=== PATIENT | male | born 1945 | race Caucasian/White ===

== ENCOUNTER 2022-03-01 08:36 | Outpatient (CLI) | payer OTHER, SELFPAY ==
--- NOTE | 2022-03-01 08:48 | XRR_ITS ---
PROCEDURE INFORMATION: Exam: XR Cervical Spine Exam date and time: 03/01/2022 9:18 AM Age: 76 years old Clinical indication: Neck pain; Patient HX: Pain/cramp/numbness in bi lat shoulders and back; Additional info: Chronic back pain/weakness of R arm TECHNIQUE: Imaging protocol: XR of the cervical spine. Views: 2 or 3 views. Total images: 3 COMPARISON: No relevant prior studies available. FINDINGS: Bones/joints: C3-C4 and C5-7 Degenerative disc disease with disc space narrowing and osteophyte formation. Facet joint degenerative changes are present. C7-T1 Degenerative spondylolisthesis (grade 1) is seen with disc space height loss and degenerative changes in the facet joints. Soft tissues: Unremarkable. Other findings: Uncovertebral joint degeneration is present. XR/XR cervical spine 3V* [id number] IMPRESSION: Degenerative changes as described above but no acute pathology detected.
--- NOTE | 2022-03-01 08:48 | XRR_ITS ---
PROCEDURE INFORMATION: Exam: XR Thoracic Spine Exam date and time: 03/01/2022 9:18 AM Age: 76 years old Clinical indication: Pain in thoracic spine; Patient HX: Pain/cramp/numbness in bi lat shoulders and back; Additional info: Chronic back pain/weakness of R arm TECHNIQUE: Imaging protocol: XR of the thoracic spine. Views: 3 views. Total images: 2 COMPARISON: No relevant prior studies available. FINDINGS: Bones/joints: Diffuse osteopenia noted. No acute fracture nor subluxation. No osseous erosion nor periosteal reaction. Soft tissues: Unremarkable. XR/XR thoracic spine 2V [id number] IMPRESSION: No acute osseous pathology.
== END 2022-03-01 08:37 | disposition home or self-care (01) ==
LOC: RAD 08:39
PROVIDERS: Family Provider Family Medicine; Visit Provider Family Medicine
DX: M54.89 Other dorsalgia (principal); R53.1 Weakness; M50.323 Other cervical disc degeneration at C6-C7 level; M48.02 Spinal stenosis, cervical region; M85.80 Other specified disorders of bone density and structure, unspecified site
CPT/HCPCS: 72040; 72070

== ENCOUNTER 2022-04-06 11:00 | Outpatient (CLI) | payer OTHER, SELFPAY ==
--- NOTE | 2022-04-06 11:10 | MR_ITS ---
WS: [id number] MRI CERVICAL SPINE NONCONTRAST HISTORY: CHRONIC NECK PAIN/WEAKNESS OF R ARM COMPARISON: None available. Technique: Multiplanar, multisequence noncontrast imaging of the cervical spine. Moderate increase in cervical lordosis. No fracture or marrow edema. 2 mm retrolisthesis C3. Signal within the cervical cord is normal. Visualized posterior fossa is unremarkable. Craniocervical junction, C1 and C2 relationship, odontoid process and soft tissues are normal. Facet joint arthritis encroaching upon the posterior thecal sac from C2 through C4 and again at C6-7. C2-C3: Mild annular osteophytosis. No stenosis. C3-C4: Diffuse annular osteophytic ridging. Osteophytes and disc encroachment upon the ventral thecal sac. Mild deformity of the central canal. Moderate to severe central stenosis with LEFT foraminal st enosis and mild RIGHT foraminal stenosis. C4-C5: Diffuse osteophytic ridging with facet joint arthritis. Mild central and bilateral foraminal s tenosis. C5-C6: Moderate annular disc bulging and osteophytic ridging. Osteophytes displace the exiting nerve roots. Mild central and bilateral foraminal stenosis. C6-C7: Diffuse osteophytic ridging and annular disc bulge with a central disc protrusion. Moderate ce ntral and bilateral foraminal stenosis. C7-T1: Mild disc bulging and facet arthritis. Small osteophyte encroaches into the RIGHT foramen. Mild cerebellar atrophy. MR/MR cervical spin wo con* [id number] IMPRESSION: 1. Marked increase in the cervical lordosis with advanced degenerative spondyl itic changes. 2. Multilevel stenoses due to combination of disc disease, osteophytosis and f acet arthritis. 3. Moderate to severe central stenosis and LEFT foraminal stenosis at C3-4. Mi ld RIGHT foraminal stenosis. 4. Mild central and bilateral foraminal stenosis at C4-5 and C5-6. 5. Moderate central and bilateral foraminal stenosis at C6-7 predominantly due to osteophyte and disc disease. Smaller central disc protrusion. 6. Small osteophyte encroaches into the RIGHT foramen of C7-T1.
--- NOTE | 2022-04-06 11:10 | MR_ITS ---
WS: [id number] MRI THORACIC SPINE noncontrast. HISTORY: CHRONIC NECK PAIN/WEAKNESS OF R ARM COMPARISON: None available. TECHNIQUE: Multiplanar sequences are performed in sagittal and axial planes. Slight increase in thoracic kyphosis. No fracture or marrow edema. Very mild disc desiccation through out the thoracic spine. Conus tapers normally ends at T12-L1. T1-2: Normal. T2-3: Normal. T3-4: Normal. T4-5: Normal. T5-6: Normal. T6-7: Mild facet arthritis. T7-8: Mild facet arthritis. T8-9: Mild facet arthritis. T9-10: Mild facet arthritis. T10-11: Mild facet arthritis. T11-12: Mild facet arthritis. RIGHT renal cyst measures 1.4 cm. Mild atherosclerotic changes throughout the aorta. MR/MR thoracic spin wo con* [id number] IMPRESSION: 1. 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 2. No fractures. 3. No significant stenosis. No disc protrusions.
== END 2022-04-06 11:01 | disposition home or self-care (01) ==
LOC: RAD 11:01
PROVIDERS: Family Provider Family Medicine; Visit Provider Family Medicine
DX: M47.894 Other spondylosis, thoracic region (principal); M47.892 Other spondylosis, cervical region; M25.78 Osteophyte, vertebrae; M48.02 Spinal stenosis, cervical region
CPT/HCPCS: 72141; 72146

== ENCOUNTER → 2023-01-25 12:55 | Outpatient (BNVA) | payer OTHER, SELFPAY | PROVIDERS: Family Provider Family Medicine; PCP Family Medicine; Visit Provider Family Medicine | DX: Z00.00 Encounter for general adult medical examination without abnormal findings (principal); R35.0 Frequency of micturition; N40.0 Benign prostatic hyperplasia without lower urinary tract symptoms | CPT/HCPCS: 81000; 84153 ==

== ENCOUNTER → 2024-04-01 12:16 | Outpatient (BNVA) | payer OTHER, MEDICARE, SELFPAY | PROVIDERS: Family Provider Family Medicine; PCP Family Medicine; Visit Provider Family Medicine | DX: N40.0 Benign prostatic hyperplasia without lower urinary tract symptoms (principal); R10.2 Pelvic and perineal pain | CPT/HCPCS: 81000 ==

== ENCOUNTER → 2024-07-02 09:49 | Outpatient (BNVA) | payer MEDICARE, SELFPAY | PROVIDERS: PCP Family Medicine; Visit Provider Family Medicine | DX: Z00.00 Encounter for general adult medical examination without abnormal findings (principal); N40.0 Benign prostatic hyperplasia without lower urinary tract symptoms | CPT/HCPCS: 80053; 80061; 85025 ==

== ENCOUNTER → 2024-11-06 15:32 | Outpatient (BNVA) | payer MEDICARE, SELFPAY | PROVIDERS: PCP Family Medicine; Visit Provider Family Medicine | DX: R97.20 Elevated prostate specific antigen [PSA] (principal); R10.2 Pelvic and perineal pain | CPT/HCPCS: 84153 ==

== ENCOUNTER → 2025-04-16 13:01 | Outpatient (BNVA) | payer MEDICARE, SELFPAY | PROVIDERS: PCP Family Medicine; Visit Provider Family Medicine | DX: R07.9 Chest pain, unspecified (principal) | CPT/HCPCS: 80053; 83690; 83880; 85025; 86140 ==

== ENCOUNTER 2025-05-04 08:44 | Outpatient (CLI) | payer MEDICARE, SELFPAY ==
[2025-05-04 09:12] VITALS: BMI 25.0
--- NOTE | 2025-05-04 09:44 | ECG_ITS ---
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 Interpretive Statements Lung unchanged pre/post procedure; Intraprocedure shortess of breath; Symptoms resoled by discharge PROCEDURE: The baseline electrocardiogram showed normal sinus rhythm with normal ST-Ts. At the baseline, the patient's blood pressure was 139/69 mm Hg with a heart rate of 74. The patient exercised for 5 minutes and 33 seconds on a standard Cricket protocol. Patient attained a maximum heart rate of 132 beats per minute(94% of the maximum predicted heart rate) with a blood pressure at the peak exercise was not obtained. The EKG at the peak exercise revealed some nonspecific ST-T changes. Patient did not have any chest pain or any significant arrhythmis with the exercise Sestamibi was injected 1 minute prior to the peak exercise During the recovery phase, there were no new changes. Blood pressure at the end of the recovery phase was 161/49 mm Hg with a heart rate of 99 per minute. CONCLUSION: 1. Nonspecific EKG changes with the [treadmill exercise 2. No exercise-induced chest pain or cardiac arrhythmia 3. Slightly impaired exercise tolerance, attained a maximum of 7.0 METs 4. Sestamibi/Sestamibi perfusion results pending; see separate report. Electronically Signed On 05-12-2025 11:04:50 CDT by Ary Ruiz M.D. [email or web address]
--- NOTE | 2025-05-04 09:47 | NMCV_ITS ---
NM mirella perf SPECT r/s* [id number] Bola Centeno Age: 79 Gender: M : 1945 Exam Date: 05/04/2025 10:09 Ordering Phys: Boo Martel MD Technologist: BEATRIZ Neff Exam Location: [facility] Indications: cp STRESS TEST Please see separate stress test report in [facility] for full findings IMAGE PROTOCOL Rest/Stress 1 Exercise Day Radiopharmaceutical Dose (mCi) Administration Site Administered by Rest: Tc-99m 10.6 IV Stella Mayfield, PUMP SERVICE SUPERVISOR Sestamibi Stress:Tc-99m 32.9 IV Stella Mayfield, PUMP SERVICE SUPERVISOR Sestamibi Rest: 04-May-2025 60 Discovery 630 Stress: 04-May-2025 15 Discovery 630 Radiopharmaceutical was injected at 87 % maximum heart rate. Images obtained in supine and prone position. SPECT RESULTS Technical Quality: Good Raw Data Analysis: Normal Image Corrections: No attenuation or motion correction applied Summed Stress Score: 0 Summed Rest Score: 0 Summed Difference Score: 0 PERFUSION FINDINGS Fairly uniform myocardial tracer uptake with no significant perfusion abnormalities FUNCTIONAL RESULTS (calculated via Gated SPECT) Stress Image LV EF (%): 69 Stress EDV (mL):93 TID: 1.08 Stress ESV (mL):29 FUNCTIONAL FINDINGS: Segmental wall motion analysis revealing no gross wall motion abnormalities IMPRESSIONS 1. Unremarkable Myocardial perfusion imaging 2. Normal LV ejection fraction 69%. 3. LV wall motion analysis revealing no gross wall motion abnormalities. 4. Normal LV volume Low probability for coronary ischemia, based on the above findings Dr Ary Ruiz MD FACC (Electronically Signed) Final Date: 04 May 2025 16:19 S
[2025-05-04 11:09] VITALS: BP 133/88; PULSE 88
== END 2025-05-04 08:45 | disposition home or self-care (01) ==
LOC: CDL 08:49
PROVIDERS: PCP Family Medicine; Visit Provider Family Medicine
DX: R07.9 Chest pain, unspecified (principal); I49.8 Other specified cardiac arrhythmias; R94.31 Abnormal electrocardiogram [ECG] [EKG]
CPT/HCPCS: 36415; 78452; 93017; A9500

== ENCOUNTER → 2025-09-30 14:26 | Outpatient (BNVA) | payer MEDICARE, SELFPAY | PROVIDERS: PCP Family Medicine; Visit Provider Internal Medicine Cardiovascular Disease | DX: R94.39 Abnormal result of other cardiovascular function study (principal); R07.9 Chest pain, unspecified; I10 Essential (primary) hypertension; I95.1 Orthostatic hypotension; R01.1 Cardiac murmur, unspecified; E78.2 Mixed hyperlipidemia; Z87.891 Personal history of nicotine dependence; R58 Hemorrhage, not elsewhere classified; I20.89 Other forms of angina pectoris | CPT/HCPCS: 36415; 80048; 85025; 85610; 99204 ==